=== PATIENT | female | born 1985 | race African-American/Black ===

== ENCOUNTER 2024-05-05 15:30 | Inpatient (IN) | payer OTHER ==
[2024-05-05 16:12] VITALS: BMI 30.7
[2024-05-05] MEDS ORDERED: chlordiazePOXIDE HCL 25 MG CAPSULE PO PRN (16:28)
[2024-05-05] MEDS ORDERED: NALOXONE (NARCAN) HCL 4 MG/0.1 ML SPRAY NS PRN (16:33)
[2024-05-05] MEDS ORDERED: POLYETHYLENE GLYCOL (HEALTHYLAX) 3350 17 GM PACKET PO PRN (16:33)
[2024-05-05] MEDS ORDERED: NICOTINE POLACRILEX 2 MG LOZENGE BC PRN (16:33)
[2024-05-05] MEDS ORDERED: LOPERAMIDE HCL 2 MG CAPSULE PO PRN (16:33)
[2024-05-05] MEDS ORDERED: DICYCLOMINE HCL 10 MG CAPSULE PO PRN (16:33)
[2024-05-05] MEDS ORDERED: IBUPROFEN 400 MG TABLET (FP) PO PRN (16:33)
[2024-05-05] MEDS ORDERED: BISMUTH SUBSALICYLATE 524 MG/30 ML PO PRN (16:33)
[2024-05-05] MEDS ORDERED: MAG HYDROX/AL HYDROX/SIMETH 30 ML UNIT-DOSE CUP PO PRN (16:33)
[2024-05-05] MEDS ORDERED: MAGNESIUM HYDROX 2400MG/30ML ORAL SUSPENSION 30 ML CUP PO PRN (16:33)
[2024-05-05] MEDS ORDERED: hydrOXYzine PAMOATE 25 MG CAPSULE (FP) PO PRN (16:33)
[2024-05-05] MEDS ORDERED: P-EPHED 60MG/TRIPROLIDI 2.5MG TABLET PO PRN (16:33)
[2024-05-05] MEDS ORDERED: BENZOCAINE/MENTHOL (CHLORASEPTIC ) LOZENGE MM PRN (16:33)
[2024-05-05] MEDS ORDERED: BENZONATATE 200 MG CAPSULE PO PRN (16:33)
[2024-05-05] MEDS ORDERED: ACETAMINOPHEN 325 MG TABLET (FP) PO PRN (16:33)
[2024-05-05] MEDS: chlordiazePOXIDE HCL 25 MG CAPSULE PO SCH (17:59)
[2024-05-05] MEDS ORDERED: chlordiazePOXIDE HCL 25 MG CAPSULE ONE (18:01)
[2024-05-05] MEDS ORDERED: ALBUTEROL SO4 HFA INHALER IH SCH (18:15)
[2024-05-05] MEDS ORDERED: BISACODYL 5 MG TABLET.DR (FP) PO SCH (18:15)
[2024-05-05] MEDS ORDERED: ALBUTEROL SO4 HFA INHALER IH PRN (18:36)
[2024-05-05] MEDS: DIVALPROEX SODIUM 500 MG TABLET E.C. PO SCH (23:15)
[2024-05-05] MEDS: MONTELUKAST NA 10 MG TABLET PO SCH (23:15)
[2024-05-05] MEDS: MELATONIN 5 MG TABLETS PO SCH (23:15)
[2024-05-05] MEDS: levETIRAcetam 500 MG TABLET (FP) PO SCH (23:15)
[2024-05-05] MEDS: BUDESONIDE/FORMETEROL FUMARATE 80/4.5 mcg INHALER IH SCH (23:16)
[2024-05-05] MEDS: THIAMINE 100 MG TABLET PO SCH (23:16)
[2024-05-05] MEDS: ONDANSETRON *ODT* 4 MG TABLET SL PRN (23:17)
[2024-05-05] MEDS ORDERED: ONDANSETRON *ODT* 4 MG TABLET ONE (23:19)
[2024-05-06] MEDS: SENNOSIDES 8.6MG TABLET (FP) PO SCH (01:06)
[2024-05-06] MEDS ORDERED: chlordiazePOXIDE HCL 25 MG CAPSULE ONE ×2 (05:30→11:46)
[2024-05-06] MEDS: chlordiazePOXIDE HCL 25 MG CAPSULE PO SCH ×2 (05:36→11:53)
[2024-05-06] MEDS ORDERED: ONDANSETRON *ODT* 4 MG TABLET ONE ×2 (06:41→06:52)
[2024-05-06] MEDS ORDERED: IBUPROFEN 600 MG TABLET (FP) PO ONE (06:42)
[2024-05-06] MEDS: chlordiazePOXIDE HCL 25 MG CAPSULE PO ONE (06:53)
[2024-05-06] MEDS: IBUPROFEN 600 MG TABLET (FP) PO PRN (07:01)
[2024-05-06 10:00] LABS: HEMATOCRIT 29.8 % (32.4-45.2); MCHC 33.6 g/dl (32.0-36.0); MEAN CELL VOLUME 86.3 fl (80-96); MEAN PLT VOLUME 9.5 fl (7.5-11.1); PLATELET COUNT 215 10^3/uL (134-434); RBC 3.46 M/mm3 (3.60-5.2)
[2024-05-06 10:06] LABS: POTASSIUM 3.9 mmol/L (3.5-5.1)
[2024-05-06] MEDS ORDERED: levETIRAcetam 500 MG TABLET (FP) PO ONE (10:06)
[2024-05-06] MEDS ORDERED: PRENATAL VITAMINS W/ FOLIC ACID TABLET (FP) PO ONE (10:07)
[2024-05-06] MEDS ORDERED: NICOTINE 14 MG/24 HOURS TOPICAL PATCH TD ONE (10:07)
[2024-05-06 10:10] LABS: BLOOD UREA NITROGEN 12.5 mg/dL (7-18)
[2024-05-06 10:11] LABS: ALBUMIN 3.3 g/dl (3.4-5.0); CALCIUM 8.5 mg/dL (8.5-10.1)
[2024-05-06 10:12] LABS: BILIRUBIN,TOTAL 0.3 mg/dL (0.2-1)
[2024-05-06 10:13] LABS: TOT PROT 6.7 g/dl (6.4-8.2)
[2024-05-06] MEDS: NICOTINE 14 MG/24 HOURS TOPICAL PATCH TD SCH (10:16)
[2024-05-06] MEDS: PRENATAL VITAMINS W/ FOLIC ACID TABLET (FP) PO SCH (10:16)
[2024-05-06] MEDS: GABAPENTIN 300 MG CAPSULE PO SCH (14:15)
[2024-05-06] MEDS: METHOCARBAMOL 500 MG TABLET PO PRN (17:10)
[2024-05-06] MEDS: PRAZOSIN HCL 1 MG CAPSULE PO SCH (22:36)
[2024-05-06] MEDS: QUEtiapine FUMARATE 200 MG TABLET PO SCH (22:36)
[2024-05-07] MEDS ORDERED: chlordiazePOXIDE HCL 10 MG CAPSULE PO SCH (05:00)
[2024-05-07] MEDS: QUEtiapine FUMARATE 50 MG TABLET PO SCH (10:00)
[2024-05-07] MEDS: SERTRALINE HCL 50 MG TABLET (FP) PO SCH ×2 (10:00→10:42)
[2024-05-07] MEDS ORDERED: DIVALPROEX SODIUM 500 MG TABLET E.C. PO SCH (10:30)
[2024-05-07] MEDS ORDERED: TRIMETHOBENZAMIDE HCL 200MG/2ML INJ IM PRN (12:24)
[2024-05-07] MEDS: chlordiazePOXIDE HCL 25 MG CAPSULE PO ONE (13:22)
[2024-05-07] MEDS: BISACODYL 5 MG TABLET.DR (FP) PO PRN (13:24)
[2024-05-07] MEDS: chlordiazePOXIDE HCL 25 MG CAPSULE PO SCH (16:28)
[2024-05-07 17:07] LABS: HIV INTERPRETATION NEGATIVE (NEGATIVE)
[2024-05-07] MEDS: QUEtiapine FUMARATE 300 MG TABLET PO SCH (21:06)
[2024-05-07] MEDS: traZODone HCL 100 MG TABLET (FP) PO SCH (21:06)
[2024-05-07] MEDS: DOCUSATE SODIUM 100 MG CAPSULE (FP) PO PRN (21:06)
[2024-05-07] MEDS: guaiFENesin 600 MG TABLET.ER (FP) PO PRN (21:07)
[2024-05-08] MEDS ORDERED: chlordiazePOXIDE HCL 10 MG CAPSULE PO PRN
[2024-05-08] MEDS ORDERED: chlordiazePOXIDE HCL 10 MG CAPSULE PO SCH (05:00)
[2024-05-08] MEDS: diphenhydrAMINE HCL 50 MG CAPSULE PO PRN (11:09)
[2024-05-08] MEDS: chlordiazePOXIDE HCL 10 MG CAPSULE PO ONE (12:03)
[2024-05-08] MEDS: chlordiazePOXIDE HCL 25 MG CAPSULE PO PRN (15:25)
[2024-05-08] MEDS: chlordiazePOXIDE HCL 10 MG CAPSULE PO SCH (17:22)
[2024-05-08] MEDS: NICOTINE POLACRILEX 2 MG GUM BUC PRN (20:42)
[2024-05-08] MEDS: GABAPENTIN 300 MG CAPSULE PO PRN (22:30)
[2024-05-09] MEDS ORDERED: chlordiazePOXIDE HCL 10 MG CAPSULE PO ONE (05:00)
[2024-05-09] MEDS: chlordiazePOXIDE HCL 10 MG CAPSULE PO PRN (09:34)
[2024-05-09] MEDS: diphenhydrAMINE HCL 25 MG CAPSULE (FP) PO PRN (09:38)
[2024-05-09] MEDS: chlordiazePOXIDE HCL 10 MG CAPSULE PO SCH (17:40)
[2024-05-10 06:48] VITALS: TEMP 97.8
[2024-05-10 10:16] VITALS: BP 115/70; PULSE 89; RESP 18
[2024-05-10] MEDS: NALOXONE (NYS OPIOID OVERDOSE PROGRAM) 4 MG/0.1 ML SPRAY NS SCH (10:51)
[2024-05-11] MEDS ORDERED: chlordiazePOXIDE HCL 10 MG CAPSULE PO ONE (05:00)
== END 2024-05-10 10:50 | disposition other institution (70) | DRG 774 ==
LOC: YASAS 15:30 → Y6N 05-06 11:59
PROVIDERS: ADMIT Neuromusculoskeletal Medicine & OMM; ATTEND Surgery
PROC: HZ2ZZZZ Detoxification Services for Substance Abuse Treatment (ICD-10-PCS; principal; 2024-05-06)
PROC: HZ2ZZZZ Detoxification Services for Substance Abuse Treatment (ICD-10-PCS; 2024-05-06)
DX: F10.230 Alcohol dependence with withdrawal, uncomplicated (principal); F13.230 Sedative, hypnotic or anxiolytic dependence with withdrawal, uncomplicated; F14.20 Cocaine dependence, uncomplicated; F12.20 Cannabis dependence, uncomplicated; F17.210 Nicotine dependence, cigarettes, uncomplicated; F25.0 Schizoaffective disorder, bipolar type; F10.282 Alcohol dependence with alcohol-induced sleep disorder; F10.24 Alcohol dependence with alcohol-induced mood disorder; F43.10 Post-traumatic stress disorder, unspecified; G40.909 Epilepsy, unspecified, not intractable, without status epilepticus; J45.20 Mild intermittent asthma, uncomplicated
CPT/HCPCS: 36415; 80053; 85027; 86780; 87389; 93005; 93010; Q0162

== ENCOUNTER 2024-06-22 21:10 | Inpatient (IN) | payer OTHER ==
[2024-06-22 22:12] VITALS: BMI 30.7
[2024-06-22] MEDS ORDERED: ALBUTEROL SO4 HFA INHALER IH PRN (23:09)
[2024-06-22] MEDS ORDERED: MAGNESIUM HYDROX 2400MG/30ML ORAL SUSPENSION 30 ML CUP PO PRN (23:13)
[2024-06-22] MEDS ORDERED: guaiFENesin 600 MG TABLET.ER (FP) PO PRN (23:13)
[2024-06-22] MEDS ORDERED: MAG HYDROX/AL HYDROX/SIMETH 30 ML UNIT-DOSE CUP PO PRN (23:13)
[2024-06-22] MEDS ORDERED: BENZOCAINE/MENTHOL (CHLORASEPTIC ) LOZENGE MM PRN (23:13)
[2024-06-22] MEDS ORDERED: NICOTINE POLACRILEX 2 MG GUM BUC PRN (23:13)
[2024-06-22] MEDS ORDERED: BISMUTH SUBSALICYLATE 524 MG/30 ML PO PRN (23:13)
[2024-06-22] MEDS ORDERED: IBUPROFEN 400 MG TABLET (FP) PO PRN (23:13)
[2024-06-22] MEDS ORDERED: BENZONATATE 200 MG CAPSULE PO PRN (23:13)
[2024-06-22] MEDS ORDERED: DICYCLOMINE HCL 10 MG CAPSULE PO PRN (23:13)
[2024-06-22] MEDS ORDERED: NALOXONE (NARCAN) HCL 4 MG/0.1 ML SPRAY NS PRN (23:13)
[2024-06-22] MEDS ORDERED: NICOTINE POLACRILEX 2 MG LOZENGE BC PRN (23:13)
[2024-06-22] MEDS ORDERED: LOPERAMIDE HCL 2 MG CAPSULE PO PRN (23:13)
[2024-06-22] MEDS ORDERED: POLYETHYLENE GLYCOL (HEALTHYLAX) 3350 17 GM PACKET PO PRN (23:13)
[2024-06-22] MEDS ORDERED: levETIRAcetam 500 MG TABLET (FP) PO ONE (23:49)
[2024-06-22] MEDS ORDERED: chlordiazePOXIDE HCL 25 MG CAPSULE ONE (23:49)
[2024-06-22] MEDS: chlordiazePOXIDE HCL 25 MG CAPSULE PO SCH (23:54)
[2024-06-22] MEDS: levETIRAcetam 500 MG TABLET (FP) PO SCH (23:56)
[2024-06-23] MEDS: BUDESONIDE/FORMETEROL FUMARATE 160/4.5 mcg INHALER IH SCH (00:41)
[2024-06-23] MEDS: chlordiazePOXIDE HCL 25 MG CAPSULE PO PRN (01:50)
[2024-06-23] MEDS: PRENATAL VITAMINS W/ FOLIC ACID TABLET (FP) PO SCH (10:20)
[2024-06-23] MEDS: QUEtiapine FUMARATE 50 MG TABLET PO SCH (10:20)
[2024-06-23] MEDS: SERTRALINE HCL 50 MG TABLET (FP) PO SCH (10:20)
[2024-06-23 10:32] LABS: POTASSIUM 3.7 mmol/L (3.5-5.1)
[2024-06-23] MEDS: DIVALPROEX NA *ER* EXTEND REL 500 MG TABLET.SA (FP) PO SCH (10:38)
[2024-06-23 10:40] LABS: HEMATOCRIT 30.5 % (32.4-45.2); HEMOGLOBIN 9.8 GM/dL (10.7-15.3); MCH 27.7 pg (25.7-33.7); MCHC 32.1 g/dl (32.0-36.0); MEAN CELL VOLUME 86.5 fl (80-96); MEAN PLT VOLUME 10.5 fl (7.5-11.1); PLATELET COUNT 187 10^3/uL (134-434); RBC 3.53 M/mm3 (3.60-5.2); RDW 15.3 % (11.6-15.6); WHITE BLOOD COUNT 5.5 K/mm3 (4.0-10.0)
[2024-06-23 10:42] LABS: BLOOD UREA NITROGEN 14.2 mg/dL (7-18); CALCIUM 8.7 mg/dL (8.5-10.1)
[2024-06-23 10:44] LABS: ALBUMIN 3.2 g/dl (3.4-5.0)
[2024-06-23 10:46] LABS: CREATININE 0.7 mg/dL (0.55-1.3)
[2024-06-23 10:47] LABS: BILIRUBIN,TOTAL 0.3 mg/dL (0.2-1); TOT PROT 6.3 g/dl (6.4-8.2)
[2024-06-23] MEDS: METHOCARBAMOL 500 MG TABLET PO PRN (12:30)
[2024-06-23] MEDS: NICOTINE 14 MG/24 HOURS TOPICAL PATCH TD SCH (12:49)
[2024-06-23] MEDS: THIAMINE 100 MG TABLET PO SCH (22:38)
[2024-06-23] MEDS: MELATONIN 5 MG TABLETS PO SCH (22:38)
[2024-06-23] MEDS: PRAZOSIN HCL 1 MG CAPSULE PO SCH (22:38)
[2024-06-23] MEDS: traZODone HCL 100 MG TABLET (FP) PO SCH (22:39)
[2024-06-23] MEDS: QUEtiapine FUMARATE 200 MG TABLET PO SCH (22:39)
[2024-06-23] MEDS: MONTELUKAST NA 10 MG TABLET PO SCH (22:39)
[2024-06-24] MEDS: chlordiazePOXIDE HCL 10 MG CAPSULE PO SCH (06:06)
[2024-06-24] MEDS: chlordiazePOXIDE HCL 25 MG CAPSULE PO SCH ×2 (06:09→17:04)
[2024-06-24] MEDS: chlordiazePOXIDE HCL 25 MG CAPSULE PO ONE (12:18)
[2024-06-24] MEDS: ACETAMINOPHEN 325 MG TABLET (FP) PO PRN (12:22)
[2024-06-24] MEDS ORDERED: TRIMETHOBENZAMIDE HCL 200MG/2ML INJ IM PRN (13:00)
[2024-06-24] MEDS: IBUPROFEN 600 MG TABLET (FP) PO PRN (17:03)
[2024-06-24] MEDS: MICONAZOLE NITRATE 2% VAGINAL CREAM 45 GM TUBE VG SCH (21:29)
[2024-06-24] MEDS: HYDROCORTISONE 1% TOPICAL CREAM 30 GM TUBE TP SCH (22:59)
[2024-06-25] MEDS ORDERED: chlordiazePOXIDE HCL 10 MG CAPSULE PO SCH (05:00)
[2024-06-25] MEDS: chlordiazePOXIDE HCL 10 MG CAPSULE PO SCH (10:31)
[2024-06-25] MEDS: chlordiazePOXIDE HCL 10 MG CAPSULE PO PRN (14:33)
[2024-06-25] MEDS: BISACODYL 5 MG TABLET.DR (FP) PO ONE (15:53)
[2024-06-25] MEDS: ARTIFICIAL TEARS OPHTHALMIC DROPS OU PRN (15:54)
[2024-06-25] MEDS: ONDANSETRON *ODT* 4 MG TABLET SL PRN (15:58)
[2024-06-25] MEDS: SENNOSIDES 8.6MG TABLET (FP) PO SCH (21:49)
[2024-06-26] MEDS ORDERED: chlordiazePOXIDE HCL 10 MG CAPSULE PO ONE (05:00)
[2024-06-26] MEDS: chlordiazePOXIDE HCL 10 MG CAPSULE PO SCH (10:25)
[2024-06-26] MEDS: BISACODYL 5 MG TABLET.DR (FP) PO PRN (11:43)
[2024-06-26] MEDS: chlordiazePOXIDE HCL 25 MG CAPSULE PO PRN (15:51)
[2024-06-26 17:44] VITALS: BP 99/60; PULSE 89; RESP 20; TEMP 97.3
[2024-06-27] MEDS ORDERED: chlordiazePOXIDE HCL 10 MG CAPSULE PO PRN
[2024-06-27] MEDS ORDERED: chlordiazePOXIDE HCL 10 MG CAPSULE PO ONE (05:00)
== END 2024-06-26 19:30 | disposition home or self-care (01) | DRG 775 ==
LOC: YASAS 21:10 → Y3N 23:29 → UNDOADMIN 23:29 → Y3N 23:43
PROVIDERS: ADMIT Allergy & Immunology; ATTEND Allergy & Immunology
PROC: HZ2ZZZZ Detoxification Services for Substance Abuse Treatment (ICD-10-PCS; principal; 2024-06-22)
DX: F10.230 Alcohol dependence with withdrawal, uncomplicated (principal); F17.210 Nicotine dependence, cigarettes, uncomplicated; F31.9 Bipolar disorder, unspecified; G40.909 Epilepsy, unspecified, not intractable, without status epilepticus; J45.20 Mild intermittent asthma, uncomplicated
CPT/HCPCS: 36415; 80053; 80164; 80305; 80307; 81025; 85027; 86780; Q0162